=== PATIENT | male | born 1995 | race Caucasian/White ===

== ENCOUNTER → 2018-06-28 | Outpatient (REF) | payer BC, OTHER ==
[2018-06-28 22:02] LABS: INFLUENZA A AMPLIFICATION NEGATIVE (NEGATIVE); INFLUENZA B AMPLIFICATION NEGATIVE (NEGATIVE)
== END ==
LOC: M LAB REF 21:21
DX: R53.83 Other fatigue (principal)
CPT/HCPCS: 87070